=== PATIENT | female | born 1980 | race Caucasian/White ===

== ENCOUNTER 2019-08-29 13:08 | Day surgery (SDC) | payer MEDICARE ==
[~2019-08-29] VITALS: Ht 170.2 cm; Wt 155.6 kg
[2019-08-29 13:28] VITALS: BP 122/91; PULSE 108; TEMP 98
[2019-08-29] MEDS ORDERED: LIPITOR20 MG PO (14:08)
[2019-08-29] MEDS ORDERED: IMITREX50 MG PO (14:08)
[2019-08-29] MEDS ORDERED: ABILIFY5 MG PO (14:09)
[2019-08-29] MEDS ORDERED: EFFEXOR XR75 MG/CAP PO (14:09)
[2019-08-29] MEDS ORDERED: EFFEXOR-XR150 MG PO (14:11)
[2019-08-29] MEDS ORDERED: DEPAKOTE ER 50500 MG PO (14:12)
[2019-08-29] MEDS ORDERED: GLUCOPHAGE500 MG/TAB PO (14:15)
[2019-08-29] MEDS ORDERED: DESYREL 100MG100 MG PO (14:16)
[2019-08-29] MEDS ORDERED: MULTIVITAMIN FO1 CAP PO (14:17)
[2019-08-29] MEDS ORDERED: CALCIUM 600MG+D1 TAB PO (14:17)
[2019-08-29] MEDS ORDERED: MASON NATURAL500 MG PO (14:19)
[2019-08-29] MEDS ORDERED: BIOTIN2500 MCG PO (14:19)
[2019-08-29 17:40] VITALS: BP 132/74; PULSE 100
[2019-08-29 17:55] VITALS: BP 112/76; PULSE 97
[2019-08-29 18:10] VITALS: BP 130/70; PULSE 97
[2019-08-29 18:25] VITALS: BP 140/86; PULSE 98
--- NOTE | 2019-08-29 18:40 | NUR ---
Patient has done well since up from OR. Alert and oriented, tolerating diet without difficulties. Voiding without difficulties. Has been up ambulating in room. VSS. INT to left hand. Discharge education provided to patient. Educated on when to call provider and patient has follow up in one month. Incisions x 2 with jennifer, edges well approximated. Stimulator site with gauze with bloody drainage present, reinforced with gauze. All questions answered. INT to left hand discontinued, catheter tip intact.
== END 2019-08-29 18:45 | disposition home or self-care (01) ==
LOC: SDCO 13:08
DX: N39.41 Urge incontinence (principal); Z79.899 Other long term (current) drug therapy; Z88.0 Allergy status to penicillin; G47.33 Obstructive sleep apnea (adult) (pediatric); G43.909 Migraine, unspecified, not intractable, without status migrainosus; E11.9 Type 2 diabetes mellitus without complications; Z79.84 Long term (current) use of oral hypoglycemic drugs; Z80.9 Family history of malignant neoplasm, unspecified; Z87.820 Personal history of traumatic brain injury
CPT/HCPCS: C1778; C1787; C1894; J0690; J2704; J3010; J7030; J7120

== ENCOUNTER 2019-09-16 08:22 | Day surgery (SDC) | payer MEDICARE ==
[~2019-09-16] VITALS: Ht 170.2 cm; Wt 155.4 kg
[~2019-09-16 08:22] MED LIST: ABILIFY5 MG PO; BIOTIN2500 MCG PO; CALCIUM 600MG+D1 TAB PO; DEPAKOTE ER 50500 MG PO; DESYREL 100MG100 MG PO; EFFEXOR XR75 MG/CAP PO; EFFEXOR-XR150 MG PO; GLUCOPHAGE500 MG/TAB PO; IMITREX50 MG PO; LIPITOR20 MG PO; MASON NATURAL500 MG PO; MULTIVITAMIN FO1 CAP PO
[2019-09-16] MEDS ORDERED: LAMISIL250 M1 PO (09:10)
[2019-09-16] MEDS ORDERED: D3-5050000 IU PO (09:10)
[2019-09-16] MEDS ORDERED: FIBER0.52 GM PO (09:10)
[2019-09-16] MEDS ORDERED: SINGULAIR 110 MG/TAB PO (09:11)
[2019-09-16] MEDS ORDERED: B COMPLEX #11 TA1 PO (09:11)
[2019-09-16] MEDS ORDERED: AMBIEN CR 12.12.5 MG PO (09:11)
[2019-09-16 09:14] VITALS: BP 143/99; PULSE 87; TEMP 98.6
[2019-09-16 12:05] VITALS: BP 131/86; PULSE 95; TEMP 97.9
--- NOTE | 2019-09-16 12:05 | NUR ---
[place] [facility] [place], accompanied by BENEFITS SPECIALIST RECRUITER Thao and ASSEMBLY LEADER Dustin Richardson. Bedside report is received. She is alert and oriented. Her mom is at the bedside. Monitoring is applied - VSS and WNL on room air. Operative site is clean/dry/intact. She denies any pain or nausea. She is offered and receives water, applesauce, chocolate pudding, vanilla pudding, and a blueberry muffin to eat. The [employer] rep comes to speak with the patient.
[2019-09-16 12:20] VITALS: BP 140/73; PULSE 91
--- NOTE | 2019-09-16 12:20 | NUR ---
VSS and WNL on room air. Denies pain or nausea. Tolerating PO well.
[2019-09-16 12:35] VITALS: BP 134/86; PULSE 95
--- NOTE | 2019-09-16 12:53 | NUR ---
Discharge criteria has been met. The patient and her mom state they are ready to go and get something to eat. PIV is removed with catheter intact and hemostasis achieved. Discharge instructions are discussed. She denies any questions and verbalizes understanding. Dr. Galindo comes to the bedside and speaks with the patient and her mom. They are given paper prescriptions for [place] and Levaquin. They are aware of the scheduled follow-up appointment for 09/30/2019 at 1245 with Avis in the clinic. The patient ambulates to the restroom, voids, and returns to room. She changes to her clothing independently.
--- NOTE | 2019-09-16 13:10 | NUR ---
The patient is escorted to the exit via wheelchair by staff. She is discharged to home with ride in private vehicle at 1310.
== END 2019-09-16 13:10 | disposition home or self-care (01) ==
LOC: SDCO 08:22
DX: N39.46 Mixed incontinence (principal); R35.0 Frequency of micturition; N32.81 Overactive bladder; E11.9 Type 2 diabetes mellitus without complications; G47.33 Obstructive sleep apnea (adult) (pediatric); G47.00 Insomnia, unspecified; E53.8 Deficiency of other specified B group vitamins; G43.909 Migraine, unspecified, not intractable, without status migrainosus; R56.9 Unspecified convulsions; F41.9 Anxiety disorder, unspecified; F32.9 Major depressive disorder, single episode, unspecified; E66.01 Morbid (severe) obesity due to excess calories; Z68.43 Body mass index [BMI] 50.0-59.9, adult; Z79.899 Other long term (current) drug therapy; Z87.820 Personal history of traumatic brain injury; Z88.0 Allergy status to penicillin; Z80.9 Family history of malignant neoplasm, unspecified
CPT/HCPCS: C1767; C1778; C1787; C1894; J0690; J2704; J3010; J7030